=== PATIENT | male | born 1960 | race Caucasian/White ===

== ENCOUNTER 2023-01-15 11:39 | Outpatient (RCR) | payer OTHER | END 2023-01-16 | LOC: M PT 11:39 | PROVIDERS: ATTEND Physician Assistant Surgical | DX: M54.2 Cervicalgia (principal) ==

== ENCOUNTER 2023-01-18 12:05 | Outpatient (RCR) | payer OTHER | END 2023-02-15 | LOC: M PT 12:05 | PROVIDERS: ATTEND Physician Assistant Surgical | DX: M54.2 Cervicalgia (principal) ==